=== PATIENT | female | born 1970 | race Caucasian/White ===

== ENCOUNTER → 2017-05-29 | Outpatient (CLI) | payer OTHER | LOC: MC.RAD 13:40 | DX: Z12.31 Encounter for screening mammogram for malignant neoplasm of breast (principal) ==

== ENCOUNTER → 2017-08-23 | Outpatient (CLI) | payer OTHER ==
[~2017-08-23] MED LIST: CELEXA 20MG20 MG/TAB PO; PROTONIX20 MG PO; XANAX 0.5MG0.5 MG PO
== END ==
LOC: COL.LAB 13:53
DX: R00.2 Palpitations (principal)

== ENCOUNTER → 2019-07-10 | Outpatient (REF) | LOC: COL.CARD 15:21 | DX: Z01.818 Encounter for other preprocedural examination (principal) ==

== ENCOUNTER → 2020-01-19 | Outpatient (REF) | LOC: COL.CARD 08:00 | DX: Z01.810 Encounter for preprocedural cardiovascular examination (principal) ==

== ENCOUNTER → 2021-05-12 | Outpatient (CLI) | payer BC | LOC: MC.RAD 14:43 | DX: Z12.31 Encounter for screening mammogram for malignant neoplasm of breast (principal) ==

== ENCOUNTER → 2023-02-19 | Outpatient (CLI) | payer BC | LOC: CANSCHCLI → MC.RAD 09:35 | DX: Z12.31 Encounter for screening mammogram for malignant neoplasm of breast (principal) ==